=== PATIENT | female | born 1980 | race Caucasian/White ===

== ENCOUNTER → 2016-04-27 | Outpatient (CLI) | payer BC ==
[2016-04-27 11:37] LABS: BILIRUBIN,URINE NEGATIVE (NEGATIVE); BLOOD/HEMOGLOBIN,URINE 2+ (NEGATIVE); GLUCOSE, URINE NEGATIVE (NEGATIVE); KETONES,URINE NEGATIVE (NEGATIVE); LEUKOCYTE ESTERASE ,URINE 1+ (NEGATIVE); NITRITES,URINE NEGATIVE (NEGATIVE); PROTEIN,URINE 1+ (NEGATIVE); UROBILINOGEN,URINE NORMAL (NORMAL)
[2016-04-27 11:40] LABS: BASOPHILS % (AUTO) 0.4 % (0.2-1.0); EOSINOPHILS # (AUTO) 0.1 x10^3/uL (0.0-0.2); EOSINOPHILS % (AUTO) 1.4 % (0.9-2.9); HEMATOCRIT 40.6 % (36.0-47.0); HEMOGLOBIN 13.8 g/dL (12.0-16.0); LYMPHOCYTES # (AUTO) 1.7 X10^3/uL (1.3-2.9); MEAN CORPUSCULAR HEMOGLOBIN 30.6 pg (27.0-34.0); MEAN CORPUSCULAR HGB CONC 33.9 g/dL (33.0-35.0); MEAN CORPUSCULAR VOLUME 90.4 fL (80.0-100.0); MEAN PLATELET VOLUME 10.5 fL (7.4-11.0); MONOCYTES # (AUTO) 0.4 x10^3/uL (0.3-0.8); MONOCYTES % (AUTO) 5.8 % (0.0-13.0); NEUTROPHILS # (AUTO) 4.9 x10^3/uL (2.2-4.8); NEUTROPHILS % (AUTO) 68.4 % (42.0-75.0); PLATELET COUNT 153 X10^3/uL (150.0-450.0); RED CELL DISTRIBUTION WIDTH 11.9 % (11.6-16.5); WHITE BLOOD COUNT 7.1 X10^3/uL (3.6-10.0)
[2016-04-27 11:45] LABS: APPEARANCE,URINE HAZY (CLEAR); BACTERIA,URINE 1+ /HPF (NEGATIVE); COLOR,URINE YELLOW (YELLOW); RBC,URINE 0-2 /HPF (NEGATIVE); SQUAMOUS EPITHELIAL CELL,UR FEW /HPF (NEGATIVE)
[2016-04-27 11:47] LABS: BLOOD UREA NITROGEN 8 mg/dL (7-18); CALCIUM 8.5 mg/dL (8.5-10.1); CHLORIDE 105 mmol/L (98-107); CREATININE 0.83 mg/dL (0.55-1.02); GLUCOSE 103 mg/dL (65-99); SODIUM 139 mmol/L (136-145); eGFR BLACK RACES > 60 (>60); eGFR NON BLACK RACES > 60 (>60)
[2016-04-27 11:48] LABS: SERUM PREGNANCY TEST, QUAL NEGATIVE <10 mIU/mL
== END ==
LOC: LAB 10:54
PROVIDERS: ATTEND Specialist
DX: Z01.818 Encounter for other preprocedural examination (principal); N94.6 Dysmenorrhea, unspecified; N92.5 Other specified irregular menstruation; N80.8 Other endometriosis
CPT/HCPCS: 36415; 80048; 81001; 84703; 85025; 85610; 85730; 86850; 86900; 86901; 87086

== ENCOUNTER 2016-05-02 06:16 | Observation (INO) | payer BC ==
[2016-05-02] MEDS ORDERED: ANCEF VIAL 1 GM ONE (06:31)
[2016-05-02] MEDS ORDERED: NS 50 ML IV + SPIKE MINIBAG* 50 ML IV ONE (06:31)
[2016-05-02] MEDS ORDERED: LR 1000 ML IV 1,000 ML IV ONE ×2 (06:31→08:16)
[2016-05-02] MEDS ORDERED: VASOPRESSIN ONE (06:54)
[2016-05-02 07:08] VITALS: BMI 18.0
[2016-05-02] MEDS ORDERED: DURAMORPH ONE (07:11)
[2016-05-02] MEDS ORDERED: FENTANYL INJ 100 mcg ONE ×2 (07:18→08:05)
[2016-05-02] MEDS ORDERED: NS IRRIGATION 1000 ML 1,000 ML IR ONE (08:01)
[2016-05-02] MEDS ORDERED: REGLAN INJ 10 MG VIAL IVP PRN ×2 (08:50→10:19)
[2016-05-02] MEDS ORDERED: PHENERGAN INJ 25 MG IVP PRN (08:50)
[2016-05-02] MEDS ORDERED: ZOFRAN INJ 4 MG VIAL IVP PRN ×3 (08:50→10:19)
[2016-05-02] MEDS ORDERED: BENADRYL INJ 50 MG VIAL IVP PRN ×3 (08:50→10:19)
[2016-05-02] MEDS ORDERED: NEXIUM PO SCH (09:00)
[2016-05-02] MEDS ORDERED: TORADOL 30 MG VIAL ONE (09:17)
[2016-05-02] MEDS ORDERED: NEOSTIGMINE INJ ONE (09:33)
[2016-05-02] MEDS ORDERED: SUPRANE IN ONE (09:33)
[2016-05-02] MEDS ORDERED: DIPRIVAN VIAL ONE (09:33)
[2016-05-02] MEDS ORDERED: ZOFRAN INJ 4 MG VIAL ONE (09:33)
[2016-05-02] MEDS ORDERED: QUELICIN (OR ANECTINE) ONE (09:33)
[2016-05-02] MEDS ORDERED: NORCURON INJ 10 MG VIAL ONE (09:33)
[2016-05-02] MEDS ORDERED: REGLAN INJ 10 MG VIAL ONE (09:33)
[2016-05-02] MEDS ORDERED: ROBINUL ONE (09:33)
[2016-05-02] MEDS ORDERED: VERSED ONE (09:33)
[2016-05-02] MEDS ORDERED: XYLOCAINE 2 % (PLAIN) ONE (09:33)
[2016-05-02] MEDS ORDERED: ANCEF VIAL 1 GM 1 GM in NS 50 ML IV + SPIKE MINIBAG* 50 ML IV PRN (10:19)
[2016-05-02] MEDS ORDERED: NARCAN INJ IVP PRN (10:19)
[2016-05-02] MEDS ORDERED: PERCOCET TAB 5/325 MG PO PRN ×2 (10:19→17:09)
[2016-05-02] MEDS ORDERED: TORADOL 30 MG VIAL IVP PRN ×2 (10:19)
[2016-05-02] MEDS ORDERED: D5 1/2 NS 1000 ML 1,000 ML IV SCH (10:19)
[2016-05-02] MEDS: D5 1/2 NS 1000 ML 1,000 ML IV SCH ×2 (10:55→18:28)
[2016-05-03] MEDS: D5 1/2 NS 1000 ML 1,000 ML IV SCH (01:36)
[2016-05-03 05:23] LABS: BLOOD UREA NITROGEN 4 mg/dL (7-18); CALCIUM 7.9 mg/dL (8.5-10.1); CARBON DIOXIDE 26.8 mmol/L (21-32); CHLORIDE 107 mmol/L (98-107); CREATININE 0.61 mg/dL (0.55-1.02); GLUCOSE 103 mg/dL (65-99); SODIUM 141 mmol/L (136-145); eGFR BLACK RACES > 60 (>60); eGFR NON BLACK RACES > 60 (>60)
[2016-05-03 05:27] LABS: BASOPHILS % (AUTO) 0.2 % (0.2-1.0); EOSINOPHILS # (AUTO) 0.1 x10^3/uL (0.0-0.2); EOSINOPHILS % (AUTO) 0.6 % (0.9-2.9); HEMATOCRIT 32.9 % (36.0-47.0); HEMOGLOBIN 11.2 g/dL (12.0-16.0); LYMPHOCYTES # (AUTO) 2.5 X10^3/uL (1.3-2.9); LYMPHOCYTES % (AUTO) 20.3 % (21.0-51.0); MEAN CORPUSCULAR HEMOGLOBIN 30.8 pg (27.0-34.0); MEAN CORPUSCULAR HGB CONC 34.1 g/dL (33.0-35.0); MEAN CORPUSCULAR VOLUME 90.4 fL (80.0-100.0); MEAN PLATELET VOLUME 10.3 fL (7.4-11.0); MONOCYTES # (AUTO) 0.9 x10^3/uL (0.3-0.8); MONOCYTES % (AUTO) 7.4 % (0.0-13.0); NEUTROPHILS # (AUTO) 8.7 x10^3/uL (2.2-4.8); NEUTROPHILS % (AUTO) 71.5 % (42.0-75.0); PLATELET COUNT 129 X10^3/uL (150.0-450.0); RED BLOOD COUNT 3.64 X10^6/uL (3.5-5.4); RED CELL DISTRIBUTION WIDTH 11.7 % (11.6-16.5); WHITE BLOOD COUNT 12.2 X10^3/uL (3.6-10.0)
[2016-05-03 08:16] VITALS: BP 110/56
[2016-05-03] MEDS ORDERED: NEXIUM PO SCH (09:00)
== END 2016-05-03 10:35 | disposition home or self-care (01) | DRG 743 ==
LOC: SURG1 06:16 → MED/SURG 09:15 → SURG1 11:53
PROVIDERS: ADMIT Specialist; ATTEND Specialist
PROC: 0UTC7ZZ Resection of Cervix, Via Natural or Artificial Opening (ICD-10-PCS; 2016-05-02)
PROC: 0UT97ZZ Resection of Uterus, Via Natural or Artificial Opening (ICD-10-PCS; principal; 2016-05-02 07:30)
DX: N80.8 Other endometriosis (principal); N94.6 Dysmenorrhea, unspecified; N92.0 Excessive and frequent menstruation with regular cycle; R10.2 Pelvic and perineal pain; K21.9 Gastro-esophageal reflux disease without esophagitis
CPT/HCPCS: 36415; 80048; 85025; A4216; A4222; G0378; J0330; J0690; J1885; J2001; J2250; J2405; J2710; J2765; J3010; J3490; J7042; J7120